=== PATIENT | male | born 1975 | race African-American/Black ===

== ENCOUNTER 2018-10-06 12:54 | Emergency (ER) | payer MEDICAID ==
[~2018-10-06] VITALS: Ht 190.5 cm; Wt 127.0 kg
[2018-10-06] MEDS ORDERED: KETOROLAC 30MG/ML VIAL IM ONE (13:45)
[2018-10-06] MEDS ORDERED: METHOCARBAMOL 500MG TABLET PO ONE (13:45)
[2018-10-06 14:52] VITALS: BP 134/89
== END 2018-10-06 14:53 | disposition home or self-care (01) ==
LOC: ER 12:54
DX: M54.9 Dorsalgia, unspecified (principal); M25.569 Pain in unspecified knee
CPT/HCPCS: 72110; 96372; 99283; J1885; Z7610